=== PATIENT | female | born 1995 | race African-American/Black ===

== ENCOUNTER 2024-01-01 07:08 | Outpatient (REF) | payer OTHER, SELFPAY ==
--- NOTE | ~2024-01-01 | US_ITS ---
EXAMINATION: US PELVIS CLINICAL INFORMATION: Irregular menstruation, Shakira tube removal 9 days prior. COMPARISON: None available. TECHNIQUE: Ultrasound of the pelvis is performed using both transabdominal and transvaginal transducers along with Doppler. Transvaginal imaging is performed due to inadequate visualization transabdominally. FINDINGS: Anteverted uterus measuring 8.5 x 3.5 x 5.6 cm. There is a 0.9 x 0.8 x 0.9 cm intramural lesion in the anterior upper body, favored to represent a fibroid. The endometrium measures 0.2 cm in thickness without discrete focal abnormality. Ovaries are normal in morphology and symmetric in size. The right ovary measures 3.6 x 1.8 x 2.2 cm, 9.5 mL. The left ovary measures 2.3 x 1.9 x 1.6 cm, 5.5 mL. No free fluid. US/US pelvic and transvaginal IMPRESSION: 1. There is a 0.9 cm intramural lesion in the anterior upper body of the uterus, favored to represent a fibroid. 2. Otherwise, normal examination.
== END 2024-01-01 07:09 | disposition home or self-care (01) ==
LOC: HO.UMASIMG 07:08
PROVIDERS: Visit Provider Nurse Practitioner Women's Health
DX: N92.6 Irregular menstruation, unspecified (principal)
CPT/HCPCS: 76830; 76856

== ENCOUNTER 2024-06-01 06:22 | Outpatient (REF) | payer OTHER, SELFPAY ==
--- NOTE | ~2024-06-01 | US_ITS ---
EXAMINATION: US PELVIS CLINICAL INFORMATION: Irregular menses, last menstrual period 5 days prior. COMPARISON: Pelvic ultrasound 01/01/2024. TECHNIQUE: Ultrasound of the pelvis is performed using both transabdominal and transvaginal transducers along with Doppler. Transvaginal imaging is performed due to inadequate visualization transabdominally. FINDINGS: The uterus is anteverted and measures 7.3 x 2.8 x 5.8 cm. Uterine volume 61 mL. Endometrial thickness is 5 mm. No significant free fluid. A 1.1 x 0.8 x 1.3 cm anterior uterine mass characteristic of a fibroid, previously 0.9 x 0.8 x 0.9 cm. Right ovary measures 3.7 x 2.5 x 2.8 cm, volume 14.0 mL. Left ovary measures 3.4 x 2.0 x 2.8 cm, volume 10.0 mL. Bilateral ovaries are grossly unremarkable. US/US pelvic and transvaginal IMPRESSION: A 1.1 x 0.8 x 1.3 cm anterior uterine mass characteristic of a fibroid, previously 0.9 x 0.8 x 0.9 cm. Electronically signed by: Kim Mohan MD 06/16/2024 10:21 AM EDT
== END 2024-06-01 06:23 | disposition home or self-care (01) ==
LOC: HO.UMASIMG 06:22
PROVIDERS: Visit Provider Family Medicine
DX: N92.6 Irregular menstruation, unspecified (principal)
CPT/HCPCS: 76830; 76856

== ENCOUNTER 2024-08-31 10:27 | Outpatient (REF) | payer OTHER, SELFPAY ==
--- NOTE | ~2024-08-31 | US_ITS ---
EXAMINATION: ULTRASOUND PELVIC, COMPLETE CLINICAL INFORMATION: FIRST TRIMESTER SPOTTING, BACK PAIN R/O ECTOPIC COMPARISON: Pelvic ultrasound June 01, 2024 TECHNIQUE: Transvaginal: Used to better visualize pelvic structures Transabdominal: Not adequate for visualization Spectral Doppler and color Doppler exam was utilized. LMP: July 26, 2024. Gestational age by LMP 5 weeks 1 day. SHAKILA May 02, 2025 FINDINGS: UTERUS: Single intrauterine gestation. Yolk sac is present. The extrahepatic measures 0.09 cm. No pole. Mean sac diameter 0.23 cm. This correlates to dating of 4 weeks 5 days. SHAKILA by this exam is May 05, 2025. A previously known uterine fibroid not visualized on today's exam. At the lower uterine segment within the endometrial cavity there is a small hypoechoic area which may be a small thrombus. This is nonvascular. ADNEXA: Ovarian vascularity:Doppler demonstrates both arterial and venous vascular flow in the right and left ovary. No evidence of ovarian torsion. Right Ovary: Corpus luteum cyst measuring 1.5 cm. Left ovary measures 3.7 x 2.1 x 3.1 cm. Left Ovary: 3 x 1.6 x 2.2 cm. Cul-de-sac: No Fluid US/US OB pelvic and transvaginal IMPRESSION: 1. Single intrauterine gestation. Yolk sac is present. No pole. Mean sac diameter correlates to dating of 4 weeks 5 days. SHAKILA by this exam is May 05, 2025. 2. Small hypoechoic area at the lower uterine segment within the endometrial cavity which is avascular. May be a small thrombus. Electronically signed by: Javier Mccann MD 08/31/2024 05:57 PM EST
== END 2024-08-31 10:28 | disposition home or self-care (01) ==
LOC: HO.UMASIMG 10:27
PROVIDERS: Visit Provider Family Medicine
DX: Z34.91 Encounter for supervision of normal pregnancy, unspecified, first trimester (principal); Z3A.01 Less than 8 weeks gestation of pregnancy
CPT/HCPCS: 76801; 76817